=== PATIENT | female | born 1970 | race Caucasian/White ===

== ENCOUNTER 2017-05-16 07:33 | Day surgery (SDC) | payer MEDICARE, MEDICAID ==
--- NOTE | 2017-05-14 11:29 | ADD-HP ---
ADDENDUM HISTORY OF PRESENT ILLNESS: Marcia Hicks is a 47-year-old female, [facility] resident wi th severe mental retardation, intellectual disability, congenital hydrocephalus with a DRUG ABUSE WORKER shunt. I have talked to the patient's mother and the mother does not want had any sort of cranial revision of her DRUG ABUSE WORKER shunt. Patient has seen Dr. Ronen Connolly, Neurosurgery. Patient behaviorally is doing well and probably her shot is functioning well or she is not shunt dependent. Patient has a ventral/inc isional hernia located to the right of midline. When she is supine, this seems like a relatively sm all defect, although the hernia mass is large and enlarging. On CAT scan, there appears to be that the DRUG ABUSE WORKER shunt is seen in the hernia mass. Plan at this time is for laparoscopic evaluation and mesh repair of her incisional hernia, hoping to avoid an open operation. She is obese with limited mobil ity. Plan is to perform this in the next 2 weeks. Risks of infection, bleeding, reoperation, DVT, pneumonia, etc. were discussed overnight. Stay may be necessary, but hopefully not. For detail of her medication, and details of her past history, see her recent history and physical. PHYSICAL EXAMINATION: VITAL SIGNS: Weight 171 pounds, 67 inches, 98/49, 64 97.3 degrees. HEAD, EARS, EYES, NOSE AND THROAT: Unremarkable. LUNGS: Clear to auscultation. CARDIAC: Regular rate and rhythm without murmur or gallop. ABDOMEN: Soft, obese. The patient is wearing a binder. She has a large hernia mass to the right o f midline, upper abdomen and when supine this almost completely reduces and the defects seems to be small. ASSESSMENT AND PLAN: Ventriculoperitoneal shunt. I have discussed with Dr. Connolly. We will plan l aparoscopic evaluation, may need to relocate this intraperitoneal as necessary to repair her hernia. We will plan mesh repair of her hernia, hopefully laparoscopically as an outpatient. Risks and be nefits explained. She consents. Consideration of the tap block can be given, tap block to be done intraoperatively.
--- NOTE | 2017-05-14 11:39 | HP ---
HISTORY OF PRESENT ILLNESS: Ms. Marcia Hicks is a 47-year-old female, [facility] residen , who I initially saw 02/2014 for suspect ventral hernia. The patient had an upper abdominal incis ion between her umbilicus and xiphoid, unknown source, though she does have a ventriculoperitoneal s mullins. In the past, I have recommended laparoscopic repair. Today, I visualized the ventriculoperit maki shunt and avoid injury. In the interim, she has not had any problems because the abdomen is m ore protuberant and she has gained weight. She has an appointment to see Dr. Connolly to evaluate her METAL SPRAYER MACHINED PARTS shunt. The patient has recently recovered from a fractured ankle. She is followed by Rosaline moon. The hernia seems to be getting bigger and I am asked to see regarding this hernia. PAST MEDICAL HISTORY: Autistic disorder, complex partial epileptic seizures, congenital hydrocephal us with METAL SPRAYER MACHINED PARTS shunt, dyslipidemia, generalized anxiety disorder, metabolic X syndrome, OCD disorder, de velopmental disorder, history of SIADH, and ventral incisional hernia. PAST SURGICAL HISTORY: METAL SPRAYER MACHINED PARTS shunt in 1969, colonoscopy is 2012, CTA of the abdomen 03/30/2017 demonst rating the shunt to be in the hernia defect. TOBACCO: None. ALCOHOL: None. The patient was born in [place], diagnosed with hydrocephaly at , METAL SPRAYER MACHINED PARTS shunt implanted, subsequent revisions, history of concussion up with condylar fracture requiring surgery ORIF with an ankle POPEYE F surgery. REVIEW OF SYSTEMS: Not possible. MEDICATIONS: Aripiprazole 20 mg daily, calcium carbonate a.m., 600 mg, vitamin D a.m., fexofenadine 180 mg tablets a.m., lorazepam 1 mg tablet t.i.d., phenobarbital 16.2 mg tablets at noon, phenobarb ital 32.4 mg tablets at noon and 64.8 mg tablet b.i.d., stool softeners daily and sertraline 100 mg a.m. ALLERGIES: APRESOLINE and DILANTIN. PHYSICAL EXAMINATION: GENERAL: The patient is accompanied by her caregivers from the [facility]. VITAL SIGNS: Weighs 171 pounds, height 67 inches, 26 BMI, blood pressure 114/80, 77 heart rate and temperature 97.9 degrees. HEAD, EYES, EARS, NOSE AND THROAT: Unremarkable. LUNGS: Clear to auscultation. CARDIAC: Regular rate and rhythm without murmur or gallop. ABDOMEN: Soft and obese, ventral hernia in the mid abdomen between the xiphoid and umbilicus, verti jan midline scar, subxiphoid transverse scar right mid abdomen. ASSESSMENT AND PLAN: 1. Incisional hernia. Plan repair using mesh possible relocation of the METAL SPRAYER MACHINED [employer]S shunt. 2. Morbid obesity. 3. Autism developmental delay.
[2017-05-15 10:53] VITALS: BMI 36.8
[2017-05-16] MEDS ORDERED: Bupivacaine/Epinephrine 0.25% 30 ML VIAL ONE (08:41)
[2017-05-16] MEDS ORDERED: Fentanyl 100 MCG/2 ML VIAL ONE ×2 (08:58→11:33)
[2017-05-16] MEDS ORDERED: Midazolam HCl 2 mg/2 ml Vial ONE (08:58)
[2017-05-16] MEDS ORDERED: Ketorolac Tromethamine 30 MG/ML VIAL ONE (09:06)
[2017-05-16] MEDS ORDERED: Levofloxacin 500 mg/D5W 100 ml Premix Bag ONE (09:06)
[2017-05-16 09:08] LABS: #Basophils 0.1 thou/uL (0.0-0.2); #Eosinphils 0.1 thou/uL (0.0-0.7); #Lymphocytes 1.5 thou/uL (1.20-3.40); #Monocytes 0.7 thou/uL (0.11-0.59); %Basophils 0.8 % (0.0-1.0); %Eosinophils 1.3 % (0.0-10.0); %Lymphocytes 16.4 % (21.0-51.0); %Monocytes 7.8 % (0.0-10.0); Mean Platelet Volume 7.3 fL (7.4-10.4); Red Blood Cell (RBC) Count 4.64 mill/uL (4.20-5.40); White Blood Cell (WBC) Count 9.4 thou/uL (4.8-10.8)
[2017-05-16 09:25] LABS: Anion Gap 11 mmol/L (10-20); BUN (Urea Nitrogen) 12 mg/dL (7.0-18.7); Calc. Creatinine Clearance 133 mL/min (70-130); Carbon Dioxide 24 mmol/L (22-29); Chloride 103 mmol/L (98-107); Estimated GFR-MDRD Greater than 90
[2017-05-16] MEDS ORDERED: Ondansetron HCl/PF 4 MG/2 ML Vial ONE (09:25)
[2017-05-16] MEDS ORDERED: Metoclopramide HCl 10 MG/2 ML VIAL ONE (09:25)
[2017-05-16] MEDS ORDERED: Succinylcholine Chloride 20 MG/ML 10 ml SYRINGE FS ONE (09:25)
[2017-05-16] MEDS ORDERED: Glycopyrrolate 0.2 MG/ML 5 ML SYRINGE ONE (09:25)
[2017-05-16] MEDS ORDERED: Propofol 200 MG/20 ML VIAL ONE (09:25)
[2017-05-16] MEDS ORDERED: Dexamethasone 20 MG/5 ML VIAL ONE (09:25)
[2017-05-16] MEDS ORDERED: ePHEDrine/0.9% NaCl/PF SYRINGE 50 mg/10 ml ONE (09:25)
[2017-05-16] MEDS ORDERED: diphenhydrAMINE HCl 50 MG/ML 1 ML VIAL ONE (09:25)
[2017-05-16] MEDS ORDERED: Lidocaine 1% PF 5 ML VIAL ONE (09:25)
--- NOTE | 2017-05-16 11:57 | OP ---
DATE OF PROCEDURE: 05/16/2017 PREOPERATIVE DIAGNOSES: Intellectual disability [facility] patient, incisional hernia rig ht upper quadrant 3-3.5 cm defect with adjacent smaller defects with fascial bridges laterally right , hydrocephalus, ventriculoperitoneal shunt presents with right upper quadrant. POSTOPERATIVE DIAGNOSIS: Intellectual disability [facility] patient, incisional hernia ri ght upper quadrant 3-3.5 cm defect with adjacent smaller defects with fascial bridges laterally rig ht, hydrocephalus, ventriculoperitoneal shunt present right upper quadrant. PROCEDURE: Laparoscopic revision of WIRE PULLER shunt with relocation in the abdominal cavity in the subxiph oid area. Laparoscopic closure of incisional hernia right upper quadrant with nonabsorbable sutures . Laparoscopic placement of 15 x 20 cm mesh with transfascial/abdominal wall fixation sutures of 0 Ethibond, nonabsorbable. SURGEON: Dr. Matias Pizano ANESTHESIA: General. PROCEDURE IN DETAIL: The patient was taken to the operating room where under general anesthesia, ab domen was prepared with chloraprep, draped in routine fashion. Roberts catheter was not placed. Left lateral subcostal incision made. Pneumoperitoneum to 15 mmHg obtained with the Veress needle, repl acing it with a 5 port and laparoscope inserted. Left lateral mid abdominal incision made and under laparoscopic visualization, an 11 port placed. Left lower quadrant incision made and a 5 port plac ed. Another 5 port placed and a more left lateral abdominal incision made. There were some omental adhesions in the right upper quadrant, taken down with the hot scissors. There was some fatty tiss ue about the umbilicus, taken down with hot scissors. Good hemostasis obtained. The hernia was iden tified and incarcerated small bowel which was easily removed. Hernia sac was then removed by graspi ng it and using laparoscopic dissection to free and excised it as much as possible. Fluoroscopy was used to identify the WIRE PULLER shunt, right lateral abdomen. It was seen entering the abdominal cavity la teral to the hernia defect and was too close to apply mesh. Thus, it was relocated. Incision was m jennifer right lateral subcostal at the WIRE PULLER shunt site and it was dissected free and brought out through t his wound. Another 5 port was placed in the left subxiphoid area after laparoscopic visualization a nd a grasper placed through another 5 port and the port removed with the grasper left protruding out the abdominal wall. A [place] dissector was then used to tunnel through this left subxiphoid inci luis carlos to the right subcostal incision to retrieve the WIRE PULLER shunt and pull it through a new tunnel, gras ping it with the other laparoscopic intraabdominal grasper, pulling into the abdominal cavity; out o f the way of the hernia and the proximity where the mesh was to be reapplied. The WIRE PULLER shunt was note d to be draining CSF fluid. It was functional. At this point, pneumoperitoneum reduced to 10 mmHg and transabdominal wall fixation sutures placed x4, simple and [id number] approximating the her brad defect, closing it. The 15 x 20 cm mesh which had been marked was then rolled and placed intraa bdominally and laid against the abdominal wall with the coated side adjacent to the viscera. The me sh was then tacked centrally about the mesh defect in the hernia defect about the central portion of the mesh. The mesh was then secured circumferentially to the abdominal wall under direct laparosco pic visualization. Transfascial abdominal wall fixation sutures placed with a GraNee needle using 0 Ethibond suture every 20-25 degrees circumferentially. Once this was completed, mesh was inspected , shunt inspected and shunt was noted to be functioning, draining CSF and out of the way of the mesh . At this point, pneumoperitoneum reduced. All instruments removed and all skin incisions approxim ated with interrupted subdermal 4-0 Monocryl and where the shunt was in place, a separate subcutaneo us tissue suture of 4-0 Monocryl placed. [place] glue applied. Local anesthetic infiltrated into ski n and subcutaneous tissue about all port sites. The patient tolerated the procedure well.
== END 2017-05-16 14:00 | disposition home or self-care (01) ==
LOC: SDC 07:33
PROVIDERS: ATTEND Specialist
PROC: 0WUF4JZ Supplement Abdominal Wall with Synthetic Substitute, Percutaneous Endoscopic Approach (ICD-10-PCS; principal; 2017-05-16)
PROC: 0WWG4JZ Revision of Synthetic Substitute in Peritoneal Cavity, Percutaneous Endoscopic Approach (ICD-10-PCS; 2017-05-16)
DX: K43.2 Incisional hernia without obstruction or gangrene (principal); G91.9 Hydrocephalus, unspecified; E78.5 Hyperlipidemia, unspecified; F41.9 Anxiety disorder, unspecified; F84.0 Autistic disorder; G40.209 Localization-related (focal) (partial) symptomatic epilepsy and epileptic syndromes with complex partial seizures, not intractable, without status epilepticus; Z98.890 Other specified postprocedural states; Z79.899 Other long term (current) drug therapy; Z88.8 Allergy status to other drugs, medicaments and biological substances; Z88.0 Allergy status to penicillin
CPT/HCPCS: 49654; 62230; 80048; 85025; 96374; C1781; 36415; J0131; J1100; J1200; J1885; J1956; J2001; J2250; J2405; J2704; J2765; J3010

== ENCOUNTER 2017-05-19 05:53 | Emergency (ER) | payer MEDICARE, MEDICAID ==
[2017-05-19] MEDS ORDERED: Bisacodyl 10 MG SUPP PR SCH (07:15)
[2017-05-19] MEDS ORDERED: Fleet Enema 133 ML BOT FS SCH (07:15)
[2017-05-19 07:29] LABS: #Basophils 0.1 thou/uL (0.0-0.2); #Eosinphils 0.3 thou/uL (0.0-0.7); #Lymphocytes 1.8 thou/uL (1.20-3.40); #Monocytes 1.2 thou/uL (0.11-0.59); #Neutrophils 9.7 thou/uL (1.40-6.50); %Basophils 0.5 % (0.0-1.0); %Eosinophils 2.3 % (0.0-10.0); %Lymphocytes 13.8 % (21.0-51.0); %Monocytes 8.9 % (0.0-10.0); Hematocrit 26.1 % (36.0-47.0); Mean Platelet Volume 8.2 fL (7.4-10.4); Red Blood Cell (RBC) Count 2.77 mill/uL (4.20-5.40)
--- NOTE | 2017-05-19 07:37 | RAD ---
2 VIEWS OF ABDOMEN AND UPRIGHT VIEW OF CHEST: Date: 05/19/17 COMPARISON: None. HISTORY: Distended abdomen with bruising. FINDINGS: Supine and upright views of the abdomen show a nonspecific, nonobstructed bowel gas pattern. Air is seen in the colon. No free air or air fluid levels are seen on upright examination. Cardiomediastinal silhouette is normal in size. There is no evidence of consolidation, mass, or pleu ral effusion. A ventriculostomy catheter is seen overlying the chest and abdomen. IMPRESSION: No evidence of obstruction. POS: [facility]
[2017-05-19 07:47] LABS: ALT (SGPT) 17 U/L (8-55); AST (SGOT) 23 U/L (5-34); Alkaline Phosphatase 78 U/L (40-150); Anion Gap 12 mmol/L (10-20); BUN (Urea Nitrogen) 8 mg/dL (7.0-18.7); Bilirubin, Total 0.3 mg/dL (0.2-1.2); Calc. Creatinine Clearance 0 mL/min (70-130); Calcium 8.5 mg/dL (7.8-10.44); Carbon Dioxide 23 mmol/L (22-29); Chloride 103 mmol/L (98-107); Estimated GFR-MDRD Greater than 90; Protein, Total 6.2 g/dL (6.0-8.3)
[2017-05-19] MEDS ORDERED: Bisacodyl 10 MG SUPP ONE (08:50)
[2017-05-19 10:01] LABS: Bilirubin Negative (Negative); Blood, Urine Moderate (Negative); Glucose, Urine (Dipstick) Negative (Negative); Ketone, Urine Negative (Negative); Nitrite Negative (Negative); Protein, Urine (Dipstick) Negative (Neg-Trace); Urobilinogen 0.2 mg/dL (0.2-1.0)
[2017-05-19 10:07] LABS: Bacteria/HPF None Seen HPF (None Seen); Hyaline Casts/LPF 4-6 HYALINE CAST LPF (0-3 Hyaline); Squamous Epithelial 0-3 HPF (0-3); WBC/HPF 0-3 HPF (0-3)
== END 2017-05-19 10:46 | disposition home or self-care (01) ==
LOC: ERS 05:53
DX: R14.0 Abdominal distension (gaseous) (principal); F84.0 Autistic disorder; F42.9 Obsessive-compulsive disorder, unspecified; F84.9 Pervasive developmental disorder, unspecified; Z79.899 Other long term (current) drug therapy
CPT/HCPCS: 36415; 51701; 74022; 80053; 81003; 81015; 82150; 85025; A4353